=== PATIENT | female | born 1990 | race Caucasian/White ===

== ENCOUNTER 2024-02-01 18:50 | Emergency (ER) | payer OTHER, SELFPAY ==
[2024-02-01 20:13] LABS: Absolute Basophils 0.1 K/uL (0-0.5); Absolute Eosinophils 0.1 K/uL (0-0.5); Absolute Lymphocytes (CBC) 2.5 K/uL (0.7-4.9); Absolute Monocytes 0.9 K/uL (0.1-1.3); Absolute Neutrophil 4.2 K/uL (1.8-8.0); Eosinophils % 1.5 % (0-4.4); Hematocrit 39.8 % (36.0-45.0); Hemoglobin 13.3 g/dL (12.0-15.0); Lymphocytes % 32.3 % (15.3-44.8); MCH 31.1 pg (27.0-35.0); MCHC 33.5 g/dL (32.0-36.0); MCV 92.7 fL (80-100); MPV 8.8 fL (7.6-11.3); Monocytes % 11.3 % (3.3-12.3); Neutrophils % 53.9 % (41.7-73.7); Nucleated Red Blood Cells % 0.1 % (0-0); Platelets 300 thou/uL (152-406); RBC Red Blood Cell Count 4.29 M/uL (3.86-4.86); Red Cell Distribution Width 12.9 % (12.1-15.2)
[2024-02-01 20:43] LABS: Albumin 3.7 g/dL (3.4-5.0); Anion Gap 7.8 mEq/L (5.0-15.0); Bilirubin Total 0.4 mg/dL (0.2-1.0); Globulin 3.7 g/dL (2.3-3.5); Protein, Total 7.4 g/dL (6.4-8.2)
[2024-02-01 20:57] LABS: Potassium 3.8 mEq/L (3.5-5.1)
[2024-02-01 21:02] LABS: Sqamous Epithelial <5 /HPF (None Seen); Urine Bacteria None Seen /HPF (<20); Urine Bilirubin NEGATIVE (Negative); Urine Blood 3+ (Negative); Urine Clarity Turbid (Clear); Urine Color Light-Yellow (Yellow); Urine Culture Reflex Order NOT NEEDED; Urine Glucose NEGATIVE (Negative); Urine Ketones NEGATIVE (Negative); Urine Microscopic Reflex YN ORDER UMIC; Urine Nitrite NEGATIVE (Negative); Urine Protein TRACE (Negative); Urine RBC >50 /HPF (None Seen); Urine Urobilinogen Normal (Normal)
--- NOTE | 2024-02-01 21:48 | RAD REPORT ---
EXAM DESCRIPTION: US - 1St Trimest Single 1St Fetus - 02/01/2024 7:50 pm CLINICAL HISTORY: ABD CRAMPING, COMPARISON: No comparisons TECHNIQUE: Sonographic grayscale and color flow images of a first-trimester were obtained through transabdominal approach. FINDINGS: A single live intrauterine is identified. [place]-rump length measures 26.9 millimeters, corresponding to gestational age of 9 weeks, 4 days. Fet al heart rate: 175 BPM. Normal yolk sac is visualized. A small crescentic fluid collection is seen adjacent to the gestational sac measuring 1.3 cm. Maternal ovaries are unremarkable. No free fluid. IMPRESSION: 1. Single live intrauterine . 2. Calculated gestational age: 9 weeks, 4 days. Estimated due date by ultrasound: 09/01/2024. 3. Small collection adjacent to the gestational sac measuring 1.3 cm suggesting a subchorionic hemorr tanja. Close clinical follow-up and follow-up ultrasound in 7-10 days are recommended.
--- NOTE | 2024-02-01 21:58 | ER ---
Nurse's Notes [facility] Name: Martha Pond Age: 34 yrs Sex: Female : 1990 Arrival Date: 02/01/2024 Time: 18:50 Bed 7 Private MD: Diagnosis: Vaginal bleeding in , Threatened miscarriage Presentation: 01/31 19:30 Chief complaint: Patient states: Pt states she is 10 weeks . Pt states she tl4 started spotting on Friday, today a clot fell out. Pt denies abdominal pain, dizziness, nausea, vomiting, diarrhea. . Coronavirus screen: At this time, the client does not indicate any symptoms associated with coronavirus-19. Ebola Screen: No symptoms or risks identified at this time. Initial Sepsis Screen: Does the patient meet any 2 criteria? No. Patient's initial sepsis screen is negative. Does the patient have a suspected source of infection? No. Patient's initial sepsis screen is negative. Risk Assessment: Do you want to hurt yourself or someone else? Patient reports no desire to harm self or others. Onset of symptoms was January 30, 2024. 19:30 Method Of Arrival: Ambulatory tl4 19:30 Acuity: BRENDEN 3 tl4 Triage Assessment: 19:36 General: Appears distressed, Behavior is cooperative, crying. Pain: Denies pain. EENT: tl4 No signs and/or symptoms were reported regarding the EENT system. Neuro: Level of Consciousness is awake, alert, obeys commands, Oriented to person, place, time, situation. Cardiovascular: Capillary refill < 3 seconds Patient's skin is warm and dry. Respiratory: Airway is patent Respiratory effort is even, unlabored, Respiratory pattern is regular, symmetrical. GI: No signs and/or symptoms were reported involving the gastrointestinal system. : Reports vaginal bleeding that is with clots. Historical: - Allergies: 19:32 Benadryl; tl4 - Home Meds: 19:32 Metformin Oral [Active]; levothyroxine oral [Active]; Prozac Oral [Active]; tl4 - PMHx: 19:32 Diabetes mellitus; Hypothyroidism; tl4 - Immunization history:: Adult Immunizations unknown. - Infectious Disease History:: Denies. - Social history:: Smoking status: Patient denies any tobacco usage or history of. - Family history:: not pertinent. Assessment: 20:01 Obstetrical Assessment: General assessment: awake and alert, Patient reports pt reports jm12 spotting since fri. Reassessment: Patient appears in no apparent distress at this time. General: Appears in no apparent distress. Behavior is calm, cooperative. Pain: Denies pain. Neuro: No deficits noted. Cardiovascular: No deficits noted. Respiratory: No deficits noted. GI: No deficits noted. No signs and/or symptoms were reported involving the gastrointestinal system. : No deficits noted. No signs and/or symptoms were reported regarding the genitourinary system. EENT: No deficits noted. No signs and/or symptoms were reported regarding the EENT system. Derm: No deficits noted. No signs and/or symptoms reported regarding the dermatologic system. Musculoskeletal: No deficits noted. No signs and/or symptoms reported regarding the musculoskeletal system. Vital Signs: 19:30 BP 122 / 83; Pulse 80; Resp 18; Temp 98.7(O); Pulse Ox 100% on R/A; Weight 108.86 kg; tl4 Height 5 ft. 10 in. ; Pain 0/10; 21:23 BP 124 / 76; Pulse 76; Resp 16; Temp 98.2; Pulse Ox 100% ; jm12 22:29 BP 132 / 62; Pulse 86; Resp 14; Temp 98.2; Pulse Ox 100% ; Pain 0/10; jm12 19:30 Body Mass Index 34.44 (108.86 kg, 177.8 cm) tl4 19:30 Pain Scale: Adult tl4 22:29 Pain Scale: Adult 12 ED Course: 18:53 Patient arrived in ED. im 19:04 Bruce Abbott MD is Attending Physician. sp4 19:32 Triage completed. tl4 19:37 Arm band placed on right wrist. tl4 19:52 1St Trimest Single 1St Fetus In Process Unspecified. EDMS 19:55 Inserted saline lock: 22 gauge in right antecubital area, using aseptic technique. jm12 Blood collected. Flushed with 10 mL NS. 20:04 CBC with Diff Sent. jm12 20:04 CMP Sent. jm12 22:29 IV discontinued, intact, bleeding controlled, No redness/swelling at site. Pressure jm12 dressing applied. Administered Medications: No medications were administered Outcome: 21:58 Discharge ordered by . sp4 22:30 Discharged to home jm12 22:30 Condition: stable 22:30 Discharge instructions given to patient, Instructed on discharge instructions, follow up and referral plans. Demonstrated understanding of instructions, follow-up care, Prescriptions given X 22:30 Patient left the ED. jm12 Signatures: Dispatcher [employer] EDMS Bruce Abbott MD MD sp4 Lizzy Tristan Toni RN RN tl4 Merly Ziegler RN RN jm12 Corrections: (The following items were deleted from the chart) 19:35 19:32 Home Meds: duloxetine oral; tl4 tl4 19:36 19:30 Chief complaint: Patient states: Pt states she is 10 weeks . Pt states tl4 she started spotting on Friday, today a clot fell out. Pt denies abdominal pain, dizziness, nausea, vomiting, diarrhea tl4
--- NOTE | 2024-02-01 21:59 | EDPHYS ---
Physician Documentation [facility] Name: Martha Pond Age: 34 yrs Sex: Female : 1990 Arrival Date: 02/01/2024 Time: 18:50 Bed 7 Private MD: ED Physician Bruce Abbott HPI: 01/31 19:04 This 34 yrs old Female presents to ER via Unassigned with complaints of sp4 Vaginal Bleeding, + Preg <12wks. 20:52 Patient is 34-year-old female -0-1-0 at estimated 10 weeks 4 days EGA by LMP and sp4 ultrasound. Menstrual period is 11/18/2023. Patient presents with acute onset of vaginal spotting and passing 1 clot starting yesterday . Patient's [employer] is Dr. Herbert in [place] . Historical: - Allergies: 19:32 Benadryl; tl4 - Home Meds: 19:32 Metformin Oral [Active]; levothyroxine oral [Active]; Prozac Oral [Active]; tl4 - PMHx: 19:32 Diabetes mellitus; Hypothyroidism; tl4 - Immunization history:: Adult Immunizations unknown. - Infectious Disease History:: Denies. - Social history:: Smoking status: Patient denies any tobacco usage or history of. - Family history:: not pertinent. ROS: 20:52 Constitutional: Negative for fever, chills, and weight loss, Eyes: Negative for injury, sp4 pain, redness, and discharge, ENT: Negative for injury, pain, and discharge, : Vaginal spotting and passing a clot vaginally. 20:52 All other systems are negative, Exam: 20:52 Constitutional: This is a well developed, well nourished patient who is awake, alert, sp4 and in no acute distress. Head/Face: Normocephalic, atraumatic. Eyes: Pupils equal round and reactive to light, extra-ocular motions intact. Lids and lashes normal. Conjunctiva and sclera are not injected. Cornea within normal limits. Periorbital areas with no swelling, redness, or edema. ENT: Nares patent. No nasal discharge, no septal abnormalities noted. Tympanic membranes are normal and external auditory canals are clear. Oropharynx with no redness, swelling, or masses, exudates, or evidence of obstruction, uvula midline. Mucous membranes moist. Neck: Trachea midline, no thyromegaly or masses palpated, and no cervical lymphadenopathy. Supple, full range of motion without nuchal rigidity, or vertebral point tenderness. Chest/axilla: Normal chest wall appearance and motion. Nontender with no deformity. No lesions are appreciated. Cardiovascular: Regular rate and rhythm with a normal S1 and S2. No gallops, murmurs, or rubs. Normal PMI, no JVD. No pulse deficits. Respiratory: Lungs have equal breath sounds bilaterally, clear to auscultation and percussion. No rales, rhonchi or wheezes noted. No increased work of breathing, no retractions or nasal flaring. Abdomen/GI: Soft, with normal bowel sounds. No distension or tympany. No guarding or rebound. No evidence of tenderness throughout. Back: No spinal tenderness. No costovertebral tenderness. Skin: Warm, dry with normal turgor. Normal color with no rashes, no lesions, and no evidence of cellulitis. MS/ Extremity: Pulses equal, no cyanosis. Neurovascular intact. Full, normal range of motion. Neuro: Awake and alert, GCS 15, oriented to person, place, time, and situation. Cranial nerves II-XII grossly intact. Motor strength 5/5 in all extremities. Sensory grossly intact. Psych: Awake, alert, with orientation to person, place and time. Behavior, mood, and affect are within normal limits Vital Signs: 19:30 BP 122 / 83; Pulse 80; Resp 18; Temp 98.7(O); Pulse Ox 100% on R/A; Weight 108.86 kg; tl4 Height 5 ft. 10 in. ; Pain 0/10; 21:23 BP 124 / 76; Pulse 76; Resp 16; Temp 98.2; Pulse Ox 100% ; jm12 22:29 BP 132 / 62; Pulse 86; Resp 14; Temp 98.2; Pulse Ox 100% ; Pain 0/10; jm12 19:30 Body Mass Index 34.44 (108.86 kg, 177.8 cm) tl4 19:30 Pain Scale: Adult tl4 22:29 Pain Scale: Adult jm12 MDM: 19:05 Patient medically screened. sp4 21:51 ED course: EXAM DESCRIPTION: US - 1St Trimest Single 1St Fetus - 02/01/2024 7:50 pm sp4 CLINICAL HISTORY: ABD CRAMPING, COMPARISON: No comparisons TECHNIQUE: Sonographic grayscale and color flow images of a first-trimester were obtained through transabdominal approach. FINDINGS: A single live intrauterine is identified. [place]-rump length measures 26.9 millimeters, corresponding to gestational age of 9 weeks, 4 days. heart rate: 175 BPM. Normal yolk sac is visualized. A small crescentic fluid collection is seen adjacent to the gestational sac measuring 1.3 cm. Maternal ovaries are unremarkable. No free fluid. IMPRESSION: 1. Single live intrauterine . 2. Calculated gestational age: 9 weeks, 4 days. Estimated due date by ultrasound: 09/01/2024. 3. Small collection adjacent to the gestational sac measuring 1.3 cm suggesting a subchorionic hemorrhage. Close clinical follow-up and follow-up ultrasound in 7-10 days are recommended. Signed By: Milton Mcghee. 22:05 Differential diagnosis: [place] joy, ectopic . Data reviewed: vital signs, sp4 nurses notes, old medical records, lab test result(s), radiologic studies, ultrasound. ED course: Down reveals viable with heart rate 175 bpm. Estimated gestational age 9 weeks 4 days. Small subchorionic hemorrhage 1.3 cm. Patient advised to repeat hCG levels in 48 hours. Repeat ultrasound in 2 weeks . 01/31 19:10 Order name: CBC with Diff; Complete Time: 20:52 sp4 01/31 19:10 Order name: CMP; Complete Time: 21:26 sp4 01/31 19:10 Order name: Urinalysis w/ reflexes; Complete Time: 21:26 sp4 01/31 19:10 Order name: HCG-Quantitative; Complete Time: 21:26 sp4 01/31 19:52 Order name: 1St Trimest Single 1St Fetus; Complete Time: 21:51 EDMS 01/31 19:10 Order name: IV Saline Lock; Complete Time: 20:00 sp4 01/31 19:10 Order name: Labs collected and sent; Complete Time: 20:00 sp4 Administered Medications: No medications were administered Disposition Summary: 02/01/24 21:58 Discharge Ordered Notes: Location: Home sp4 Problem: new sp4 Symptoms: have improved sp4 Condition: Stable sp4 Diagnosis - Vaginal bleeding in , Threatened miscarriage sp4 Followup: sp4 - With: Private Physician - When: 48 Hours - Reason: Recheck today's complaints Discharge Instructions: - Discharge Summary Sheet sp4 - Threatened Miscarriage, [id number] sp4 Forms: - Patient Portal Instructions sp4 Signatures: Dispatcher [employer] EDBruce Fung MD MD sp4 Morro Oshea RN RN tl4 Corrections: (The following items were deleted from the chart) 19:35 19:32 Home Meds: duloxetine oral; tl4 tl4 19:51 19:11 OB Limited+US.RAD.BRZ ordered. EDMS EDMS
[2024-02-02 02:40] VITALS: O2SAT 100
[2024-02-02 02:41] VITALS: TEMP 98.2
[2024-02-02 02:42] VITALS: BP 132/62
== END 2024-02-01 22:30 | disposition home or self-care (01) ==
LOC: ER 18:50
DX: O20.0 Threatened abortion (principal); Z3A.10 10 weeks gestation of pregnancy
CPT/HCPCS: 36415; 76801; 80053; 81001; 84702; 85025; 99284